=== PATIENT | female | born 1950 | race Caucasian/White ===

== ENCOUNTER 2017-10-16 09:26 | Day surgery (SDC) | payer OTHER ==
[~2017-10-16 09:26] MED LIST: COZAAR100 MG PO; ERGOCALCIF50000 UNIT PO; GLUCOPHAGE500 MG PO; LO-DOSE ASPIRIN81 M2 PO; MEVACOR20 MG PO; NORVASC10 MG PO; TRULICITY1.5 MG/0.5 SC; VITAMIN B125000 MCG PO
[2017-10-16 10:27] VITALS: BP 116/67
[2017-10-16 16:08] VITALS: BP 114/53
[2017-10-16 17:08] VITALS: BP 109/60
[2017-10-16 18:00] VITALS: BP 113/62
== END 2017-10-16 18:10 | disposition home or self-care (01) ==
LOC: SDC 09:26
PROVIDERS: Podiatrist Foot & Ankle Surgery
DX: M21.42 Flat foot [pes planus] (acquired), left foot (principal); M21.6X2 Other acquired deformities of left foot; S93.02XA Subluxation of left ankle joint, initial encounter; M76.822 Posterior tibial tendinitis, left leg; I10 Essential (primary) hypertension; E11.9 Type 2 diabetes mellitus without complications; I25.10 Atherosclerotic heart disease of native coronary artery without angina pectoris; K21.9 Gastro-esophageal reflux disease without esophagitis; E78.5 Hyperlipidemia, unspecified; Z79.84 Long term (current) use of oral hypoglycemic drugs; Z79.891 Long term (current) use of opiate analgesic; Z79.82 Long term (current) use of aspirin; Z86.718 Personal history of other venous thrombosis and embolism
CPT/HCPCS: 73630; 76000; 82948; C1713; J0360; J0690; J1100; J1170; J1885; J2250; J2405; J2710; J2795; J3010; J7643; S0020